=== PATIENT | male | born 1960 | race Caucasian/White ===

== ENCOUNTER 2017-03-26 23:37 | Emergency (ER) | payer OTHER ==
[~2017-03-26] VITALS: Ht 182.9 cm; Wt 70.3 kg
[2017-03-26 23:48] VITALS: BP 145/108
--- NOTE | 2017-03-27 00:40 | NUR ---
Per admitting, pt left ER, no longer wishes to be seen.
== END 2017-03-27 00:42 | disposition left against medical advice (07) ==
LOC: ER 23:37
DX: Z53.21 Procedure and treatment not carried out due to patient leaving prior to being seen by health care provider (principal)
CPT/HCPCS: A4606; Z7610

== ENCOUNTER 2017-06-09 02:40 | Inpatient (IN) | payer OTHER ==
[~2017-06-09] VITALS: Ht 177.8 cm; Wt 75.7 kg
[2017-06-09] MEDS ORDERED: IV NS 0.9% 1,000 ML BAG IV ONE (03:00)
[2017-06-09] MEDS ORDERED: ONDANSETRON HCL/PF - ER 4 MG/2 ML VIAL IV ONE (03:00)
[2017-06-09] MEDS ORDERED: LORAZEPAM INJ 2 MG/ML VIAL IV ONE ×2 (03:00→04:30)
[2017-06-09] MEDS ORDERED: ONDANSETRON HCL/PF 4 MG/2 ML VIAL ONE (03:02)
[2017-06-09] MEDS ORDERED: LORAZEPAM INJ 2 MG/ML VIAL ONE ×2 (03:02→04:28)
[2017-06-09 03:35] LABS: HEMATOCRIT 38 % (39-51); HEMOGLOBIN 13.2 g/dL (13.5-17.5); LYMPHOCYTES # (AUTO) 0.2 /CMM (0.8-4.8); LYMPHOCYTES % (AUTO) 3.2 % (20.0-44.0); MEAN CORPUSCULAR HEMOGLOBIN 29 PG (26.0-33.0); MEAN CORPUSCULAR HGB CONC 35 g/dl (31.0-36.0); MEAN CORPUSCULAR VOLUME 84 fL (80-96); MONOCYTES # (AUTO) 0.6 /CMM (0.1-1.30); MONOCYTES % (AUTO) 7.5 % (2.0-12.0); NEUTROPHILS # (AUTO) 6.8 /CMM (1.8-8.9); NEUTROPHILS % (AUTO) 89.3 % (43.0-81.0); PLATELET COUNT (AUTO) 203 /CMM (150-450); RDW COEFFICIENT OF VARIATION 14.6 (11.5-15.0); RED BLOOD CELL COUNT(AUTO) 4.49 MIL/uL (4.5-6.0); WHITE BLOOD COUNT (AUTO) 7.6 K/uL (4.3-11.0)
[2017-06-09 03:48] LABS: CALCIUM, SERUM 8.8 mg/dL (8.5-10.1); CREATININE 0.7 mg/dL (0.6-1.3); INR 0.9 (0.87-1.13); POTASSIUM 3.9 mmol/L (3.5-5.1)
[2017-06-09 03:53] LABS: ALBUMIN 3.4 g/dL (3.4-5.0); BILIRUBIN,DIRECT 0.2 mg/dL (0.0-0.2); BILIRUBIN,TOTAL 0.9 mg/dL (0.2-1.0); TOTAL PROTEIN, SERUM 6.4 g/dL (6.4-8.2)
[2017-06-09] MEDS ORDERED: ALPR2TAB2 PO (03:55)
[2017-06-09 04:07] LABS: APPEARANCE,URINE TURBID (CLEAR); BILIRUBIN,URINE NEGATIVE (NEGATIVE); BLOOD, URINE NEGATIVE Ery/uL (NEGATIVE); KETONES,URINE TRACE (NEGATIVE); LEUKOCYTE ESTERASE ,URINE NEGATIVE (NEGATIVE); NITRITE, URINE NEGATIVE (NEGATIVE); PH,URINE 7.5 (5.0-8.0); PROTEIN,URINE TRACE mg/dl (NEGATIVE); UGLUCOSE NEGATIVE (NEGATIVE); UROBILINOGEN,URINE 0.2 EU/dL (0.2)
[2017-06-09 04:15] LABS: BACTERIA,URINE Few /HPF (None Seen); RBC,URINE 0-2 /HPF (0-2); SQUAMOUS EPITHELIAL CELL,UR None Seen /HPF (None Seen); URINE AMORPHOUS PHOSPHATES Many /HPF (None Seen); WBC,URINE 0-2 /HPF (0-3)
[2017-06-09] MEDS ORDERED: IV NS 0.9% 1,000 ML IV PRN (04:24)
[2017-06-09] MEDS ORDERED: ONDANSETRON HCL/PF 4 MG/2 ML VIAL IVP PRN (04:30)
[2017-06-09] MEDS ORDERED: HYDROCODONE/APAP 5/325MG 1 EACH TABLET PO PRN (04:30)
[2017-06-09] MEDS ORDERED: ACETAMINOPHEN 325 MG TABLET PO PRN (04:30)
[2017-06-09] MEDS ORDERED: Z GUARD REMEDY 2 OZ OINT TP PRN (04:30)
[2017-06-09] MEDS ORDERED: MAGNESIUM HYDROXIDE 30 ML UDC PO PRN (04:30)
[2017-06-09] MEDS ORDERED: MAG HYDROX/AL HYDROX/SIMETH 30 ML UDC PO PRN (04:30)
[2017-06-09 05:00] VITALS: BP 153/96
[2017-06-09] MEDS ORDERED: MAGNESIUM OXIDE 400 MG TABLET PO ONE (05:00)
[2017-06-09] MEDS ORDERED: MAGNESIUM OXIDE 400 MG TABLET ONE (05:10)
[2017-06-09] MEDS: LORAZEPAM INJ 2 MG/ML VIAL IV PRN ×5 (06:22→22:06)
[2017-06-09 08:00] VITALS: BP 153/96
[2017-06-09] MEDS: PANTOPRAZOLE 40 MG TABLET.DR PO SCH (09:20)
[2017-06-09] MEDS: THIAMINE HCL 100 MG TABLET PO SCH (09:20)
[2017-06-09] MEDS: FOLIC ACID 1 MG TABLET PO SCH (09:20)
[2017-06-09 16:00] VITALS: BP 152/95
[2017-06-09 20:00] VITALS: BP 146/95
[2017-06-09 22:00] VITALS: BP 100/60
[2017-06-10] MEDS: LORAZEPAM INJ 2 MG/ML VIAL IV PRN (01:35)
[2017-06-10 07:18] LABS: BASOPHILS % (AUTO) 0.1 % (0.0-2.0); EOSINOPHILS # (AUTO) 0.1 /CMM (0.0-0.7); EOSINOPHILS % (AUTO) 1.1 % (0.0-6.0); HEMATOCRIT 39 % (39-51); HEMOGLOBIN 13.3 g/dL (13.5-17.5); LYMPHOCYTES # (AUTO) 0.9 /CMM (0.8-4.8); LYMPHOCYTES % (AUTO) 13.7 % (20.0-44.0); MEAN CORPUSCULAR HEMOGLOBIN 29 PG (26.0-33.0); MEAN CORPUSCULAR HGB CONC 34 g/dl (31.0-36.0); MEAN CORPUSCULAR VOLUME 86 fL (80-96); MONOCYTES # (AUTO) 0.6 /CMM (0.1-1.30); MONOCYTES % (AUTO) 9.8 % (2.0-12.0); NEUTROPHILS # (AUTO) 4.7 /CMM (1.8-8.9); NEUTROPHILS % (AUTO) 75.3 % (43.0-81.0); PLATELET COUNT (AUTO) 169 /CMM (150-450); RED BLOOD CELL COUNT(AUTO) 4.56 MIL/uL (4.5-6.0); WHITE BLOOD COUNT (AUTO) 6.3 K/uL (4.3-11.0)
[2017-06-10 07:47] LABS: ALBUMIN 3.2 g/dL (3.4-5.0); BILIRUBIN,DIRECT 0.2 mg/dL (0.0-0.2); BILIRUBIN,TOTAL 1.1 mg/dL (0.2-1.0); CALCIUM, SERUM 9.1 mg/dL (8.5-10.1); CREATININE 0.7 mg/dL (0.6-1.3); MAGNESIUM 1.9 mg/dL (1.8-2.4); PHOSPHORUS 3.3 mg/dL (2.5-4.9); POTASSIUM 3.5 mmol/L (3.5-5.1); TOTAL PROTEIN, SERUM 6.1 g/dL (6.4-8.2)
[2017-06-10 07:51] LABS: THYROID STIMULATING HORMONE 2.524 uIU/mL (0.358-3.74)
[2017-06-10 08:00] VITALS: BP 139/114
[2017-06-10] MEDS: FOLIC ACID 1 MG TABLET PO SCH (08:05)
[2017-06-10] MEDS: PANTOPRAZOLE 40 MG TABLET.DR PO SCH (08:05)
[2017-06-10] MEDS: THIAMINE HCL 100 MG TABLET PO SCH (08:05)
== END 2017-06-10 09:00 | disposition left against medical advice (07) | DRG 894 ==
LOC: ER 02:41 → TELE 04:35 → MED 08:35
PROVIDERS: ADMIT Nurse Practitioner Acute Care; ATTEND Nurse Practitioner Acute Care
DX: F10.239 Alcohol dependence with withdrawal, unspecified (principal); G93.40 Encephalopathy, unspecified; E83.42 Hypomagnesemia; F10.26 Alcohol dependence with alcohol-induced persisting amnestic disorder; Y90.0 Blood alcohol level of less than 20 mg/100 ml; D64.9 Anemia, unspecified; E86.0 Dehydration; F41.9 Anxiety disorder, unspecified; R74.0 Nonspecific elevation of levels of transaminase and lactic acid dehydrogenase [LDH]
CPT/HCPCS: 36415; 70450-TC; 71045-TC; 80048-TC; 80061-TC; 80076-TC; 80305; 81000-TC; 82962-TC; 83690-TC; 83735-TC; 84100-TC; 84443-TC; 85025-TC; 85730-TC; 87081-TC; A4606; G0480; J2060; J2405; J7030; Z7610

== ENCOUNTER 2018-05-30 11:55 | Emergency (ER) | payer BC, OTHER ==
[~2018-05-30] VITALS: Ht 182.9 cm; Wt 77.6 kg
[~2018-05-30 11:55] MED LIST: ALPR2TAB2 PO
--- NOTE | 2018-05-30 11:59 | NUR ---
PT TYLER FROM HOME FOR AMS D/T ETOH; PT ON MONITOR, VSS, O2 SAT 100% ON RA, PENDING ER PROVIDER DENISE
[2018-05-30 12:14] LABS: BASOPHILS % (AUTO) 0.3 % (0.0-2.0); EOSINOPHILS % (AUTO) 0.2 % (0.0-6.0); HEMATOCRIT 46 % (39-51); HEMOGLOBIN 15.5 g/dL (13.5-17.5); LYMPHOCYTES # (AUTO) 1.1 /CMM (0.8-4.8); LYMPHOCYTES % (AUTO) 12.8 % (20.0-44.0); MEAN CORPUSCULAR HGB CONC 34 g/dl (31.0-36.0); MEAN CORPUSCULAR VOLUME 84 fL (80-96); MONOCYTES # (AUTO) 0.9 /CMM (0.1-1.30); MONOCYTES % (AUTO) 9.9 % (2.0-12.0); NEUTROPHILS # (AUTO) 6.9 /CMM (1.8-8.9); NEUTROPHILS % (AUTO) 76.8 % (43.0-81.0); PLATELET COUNT (AUTO) 94 /CMM (150-450); RED BLOOD CELL COUNT(AUTO) 5.49 MIL/uL (4.5-6.0)
[2018-05-30 12:21] LABS: CALCIUM, SERUM 8.8 mg/dL (8.5-10.1); CREATININE 0.8 mg/dL (0.6-1.3); POTASSIUM 3.8 mmol/L (3.5-5.1)
[2018-05-30 12:29] LABS: ALBUMIN 3.4 g/dL (3.4-5.0); BILIRUBIN,DIRECT 0.1 mg/dL (0.0-0.2); BILIRUBIN,TOTAL 0.2 mg/dL (0.2-1.0); SALICYLATE 1.1 mg/dL (2.8-20.0)
[2018-05-30] MEDS ORDERED: IV NS 0.9% 1,000 ML BAG IV ONE (12:30)
[2018-05-30 13:19] LABS: LYMPHOCYTES % (MANUAL) 12 % (16-48); MONOCYTES % (MANUAL) 9 % (0-11.0); NEUTROPHILS % (MANUAL) 79 (42-76)
--- NOTE | 2018-05-30 17:42 | NUR ---
[facility] CALLED REGARDING PT, AWARE OF PT'S D/C, PER SISTER, WILL SEND FRIEND TO PICK HIM UP; ETA ABOUT 30-1HR.
--- NOTE | 2018-05-30 19:54 | NUR ---
[facility]ENN[facility] CALLED FOR TRANSPORT. ETA [id number]. TRIP# [id number]
--- NOTE | 2018-05-30 22:01 | NUR ---
PER FAMILY AND PATIENT'S REQUEST, PT TO BE TRANSFERRED TO [facility]. PT LEFT IN STABLE CONDTION, PT AMBULATORY WITH STEADY GAIT; REPORT GIVEN TO EMT TRANSPORT, PT LEFT VIA PRIVATE AMBULANCE, VSS.
[2018-05-30 22:03] VITALS: BP 135/85
== END 2018-05-30 22:06 | disposition home or self-care (01) ==
LOC: ER 11:56
DX: F10.129 Alcohol abuse with intoxication, unspecified (principal); R41.82 Altered mental status, unspecified; Y90.8 Blood alcohol level of 240 mg/100 ml or more
CPT/HCPCS: 36415; 70450-TC; 80048-TC; 80076-TC; 82962-TC; 85025-TC; G0480; J7030

== ENCOUNTER 2019-04-25 13:40 | Emergency (ER) | payer BC, OTHER ==
[~2019-04-25] VITALS: Ht 182.9 cm; Wt 83.9 kg
[2019-04-25] MEDS ORDERED: CLONIDINE HCL 0.1 MG TABLET PO ONE (14:30)
--- NOTE | 2019-04-25 18:11 | NUR ---
RUBÉN TREVINO) CONTACT WITH UPDATES
--- NOTE | 2019-04-25 19:30 | NUR ---
ASSUMED CARE FOR PATIENT AT THIS TIME
--- NOTE | 2019-04-25 19:53 | NUR ---
PT WILL BE PICKED UP BY [facility] ETA 30 MIN
[2019-04-25] MEDS ORDERED: CLONIDINE HCL 0.1 MG TABLET ONE (20:03)
[2019-04-25 20:35] VITALS: BP 147/84
== END 2019-04-25 20:36 | disposition home or self-care (01) ==
LOC: ER 13:41
DX: F10.129 Alcohol abuse with intoxication, unspecified (principal); I10 Essential (primary) hypertension; Y90.8 Blood alcohol level of 240 mg/100 ml or more; Z79.899 Other long term (current) drug therapy
CPT/HCPCS: 36415; G0480

== ENCOUNTER 2020-11-04 14:25 | Emergency (ER) | payer BC, OTHER ==
[~2020-11-04] VITALS: Ht 182.9 cm; Wt 81.6 kg
[2020-11-04 14:37] VITALS: BP 118/80
--- NOTE | 2020-11-04 14:43 | NUR ---
The patient bibs for c/o L index finger laceration s/p crush injury 20 mins ago. Rates pain 5/10. No bleeding noted. No apparent deformity noted. Will continue to monitor the patient.
--- NOTE | 2020-11-04 15:54 | NUR ---
Patient discharged to home in stable condition. Written and verbal after care instructions given. Patient verbalizes understanding of instruction.
== END 2020-11-04 15:55 | disposition home or self-care (01) ==
LOC: ER 14:25
DX: S61.211A Laceration without foreign body of left index finger without damage to nail, initial encounter (principal); F10.10 Alcohol abuse, uncomplicated; Y90.9 Presence of alcohol in blood, level not specified; Z79.899 Other long term (current) drug therapy; W22.8XXA Striking against or struck by other objects, initial encounter; Y93.89 Activity, other specified; Y92.89 Other specified places as the place of occurrence of the external cause; Y99.8 Other external cause status

== ENCOUNTER 2024-01-16 00:43 | Inpatient (IN) | payer BC, MEDICARE, OTHER ==
[~2024-01-16] VITALS: Ht 182.9 cm; Wt 68.0 kg
[2024-01-16] MEDS ORDERED: LORAZEPAM 1 MG TABLET ONE (05:09)
[2024-01-16] MEDS ORDERED: ONDANSETRON 4 MG TAB.RAPDIS ONE (05:10)
[2024-01-16] MEDS: LORAZEPAM 1 MG TABLET PO ONE (05:13)
[2024-01-16] MEDS: ONDANSETRON 4 MG TAB.RAPDIS SL ONE (05:13)
[2024-01-16] MEDS ORDERED: THIAMINE HCL 100 MG TABLET ONE (05:15)
[2024-01-16] MEDS: THIAMINE HCL 100 MG TABLET PO ONE (05:20)
[2024-01-16] MEDS ORDERED: ONDANSETRON HCL/PF 4 MG/2 ML VIAL ONE (05:30)
[2024-01-16] MEDS: ONDANSETRON HCL/PF - ER 4 MG/2 ML VIAL IV ONE (05:30)
[2024-01-16] MEDS: LORAZEPAM INJ 2 MG/ML VIAL IV ONE (05:30)
[2024-01-16] MEDS: HALOPERIDOL LACTATE INJ 5 MG/ML VIAL IV ONE (05:30)
[2024-01-16] MEDS ORDERED: HALOPERIDOL LACTATE INJ 5 MG/ML VIAL ONE (05:30)
[2024-01-16] MEDS ORDERED: LORAZEPAM INJ 2 MG/ML VIAL ONE (05:31)
[2024-01-16 05:33] LABS: BASOPHILS % (AUTO) 0.3 % (0.0-2.0); EOSINOPHILS # (AUTO) 0.1 K/uL (0.0-0.7); EOSINOPHILS % (AUTO) 0.7 % (0.0-6.0); HEMATOCRIT 45 % (39-51); HEMOGLOBIN 15.3 g/dL (13.5-17.5); LYMPHOCYTES # (AUTO) 1.1 K/uL (0.8-4.8); LYMPHOCYTES % (AUTO) 12.6 % (20.0-44.0); MEAN CORPUSCULAR HEMOGLOBIN 28 PG (26.0-33.0); MEAN CORPUSCULAR HGB CONC 34 g/dl (31.0-36.0); MEAN CORPUSCULAR VOLUME 83 fL (80-96); MONOCYTES # (AUTO) 0.8 K/uL (0.1-1.30); NEUTROPHILS # (AUTO) 6.4 K/uL (1.8-8.9); NEUTROPHILS % (AUTO) 76.4 % (43.0-81.0); PLATELET COUNT (AUTO) 112 K/uL (150-450); RED BLOOD CELL COUNT(AUTO) 5.45 MIL/uL (4.5-6.0); RED CELL DISTRIBUTION WIDTH 15.2 % (11.5-15.0); WHITE BLOOD COUNT (AUTO) 8.4 K/uL (4.3-11.0)
[2024-01-16] MEDS: IV NS 0.9% 1,000 ML BAG IV ONE (05:37)
[2024-01-16 05:48] LABS: CALCIUM, SERUM 10.8 mg/dL (8.5-10.1); CREATININE 0.8 mg/dL (0.6-1.3)
[2024-01-16 05:54] LABS: ALBUMIN 4.1 g/dL (3.4-5.0); BILIRUBIN,DIRECT 0.3 mg/dL (0.0-0.2); BILIRUBIN,TOTAL 1.1 mg/dL (0.2-1.0); TOTAL PROTEIN, SERUM 7.8 g/dL (6.4-8.2)
[2024-01-16] MEDS ORDERED: POTASSIUM CL. PREMIX PERIPHER. 50 ML ONE ×4 (06:15→08:48)
[2024-01-16] MEDS ORDERED: Thiamine 100 MG/ML VIAL ONE (06:15)
[2024-01-16] MEDS ORDERED: POTASSIUM CHLORIDE 10 MEQ TABLET.SA ONE (06:16)
[2024-01-16] MEDS: Thiamine 500 MG in IV D5W 50 ML IV SCH (06:27)
[2024-01-16] MEDS: POTASSIUM CL. PREMIX PERIPHER. 50 ML IV SCH (06:27)
[2024-01-16] MEDS: POTASSIUM CHLORIDE 20 MEQ TAB.PRT.SR PO ONE (06:27)
[2024-01-16] MEDS ORDERED: Z GUARD REMEDY 4 OZ OINT TP PRN (06:30)
[2024-01-16] MEDS ORDERED: ONDANSETRON HCL/PF 4 MG/2 ML VIAL IVP PRN (06:30)
[2024-01-16] MEDS ORDERED: MAGNESIUM HYDROXIDE 30 ML UDC PO PRN (06:30)
[2024-01-16] MEDS ORDERED: MAG HYDROX/AL HYDROX/SIMETH 30 ML UDC PO PRN (06:30)
[2024-01-16] MEDS ORDERED: CHLORDIAZEPOXIDE HCL 25 MG CAPSULE PO PRN (06:30)
[2024-01-16] MEDS: THIAMINE HCL 100 MG TABLET PO SCH (09:00)
[2024-01-16] MEDS ORDERED: DIAZ10TA4 PO (09:08)
[2024-01-16] MEDS ORDERED: ROSU5TAB PO (09:08)
[2024-01-16] MEDS ORDERED: TEST75GE10 TP (09:08)
[2024-01-16] MEDS ORDERED: ZOLP10TA2 PO (09:08)
[2024-01-16] MEDS ORDERED: BUPR300T52 PO (09:08)
[2024-01-16] MEDS ORDERED: TADA5TAB13 PO (09:08)
[2024-01-16] MEDS ORDERED: LORAZEPAM INJ 2 MG/ML VIAL IV PRN (09:30)
[2024-01-16 11:00] VITALS: BP 135/90; TEMP 97.9; O2SAT 97
[2024-01-16] MEDS: MULTIVITAMINS,THERAGRAN 1 UDTAB TABLET PO SCH (11:00)
[2024-01-16] MEDS: CHLORDIAZEPOXIDE HCL 25 MG CAPSULE PO SCH (11:00)
[2024-01-16] MEDS: FOLIC ACID 1 MG TABLET PO SCH (11:00)
[2024-01-16 11:30] VITALS: BP 133/87; TEMP 97.9; O2SAT 94
[2024-01-16 16:00] VITALS: BP 121/91; TEMP 97.7; O2SAT 96
[2024-01-16] MEDS: IV NS 0.9% 1,000 ML IV PRN (16:13)
[2024-01-16] MEDS ORDERED: LIDOCAINE VISCOUS 2% UD 15 ML UDC MM PRN (17:30)
[2024-01-16 20:00] VITALS: BP_SYST 123; BP_SYST 138; BP_DIAS 78; BP_DIAS 89; TEMP 97.9; TEMP 98.1; O2SAT 95; O2SAT 97
[2024-01-17 07:08] VITALS: BP 138/78; TEMP 98.1; O2SAT 97
[2024-01-17 07:24] LABS: BASOPHILS % (AUTO) 0.4 % (0.0-2.0); EOSINOPHILS # (AUTO) 0.2 K/uL (0.0-0.7); EOSINOPHILS % (AUTO) 3.6 % (0.0-6.0); HEMATOCRIT 41 % (39-51); HEMOGLOBIN 13.5 g/dL (13.5-17.5); LYMPHOCYTES # (AUTO) 1.2 K/uL (0.8-4.8); LYMPHOCYTES % (AUTO) 21.2 % (20.0-44.0); MEAN CORPUSCULAR HEMOGLOBIN 28 PG (26.0-33.0); MEAN CORPUSCULAR HGB CONC 33 g/dl (31.0-36.0); MEAN CORPUSCULAR VOLUME 85 fL (80-96); MONOCYTES # (AUTO) 0.5 K/uL (0.1-1.30); MONOCYTES % (AUTO) 9.1 % (2.0-12.0); NEUTROPHILS # (AUTO) 3.7 K/uL (1.8-8.9); NEUTROPHILS % (AUTO) 65.7 % (43.0-81.0); PLATELET COUNT (AUTO) 102 K/uL (150-450); RED BLOOD CELL COUNT(AUTO) 4.81 MIL/uL (4.5-6.0); RED CELL DISTRIBUTION WIDTH 15.5 % (11.5-15.0); WHITE BLOOD COUNT (AUTO) 5.6 K/uL (4.3-11.0)
[2024-01-17 08:00] VITALS: BP 125/96; TEMP 98.1; O2SAT 97
[2024-01-17 08:03] LABS: CALCIUM, SERUM 9.6 mg/dL (8.5-10.1); CREATININE 0.6 mg/dL (0.6-1.3); MAGNESIUM 1.9 mg/dL (1.8-2.4); PHOSPHORUS 3.2 mg/dL (2.5-4.9); POTASSIUM 3.3 mmol/L (3.5-5.1)
[2024-01-17] MEDS: BUPROPION XL 150 MG TAB.ER.24 PO SCH (08:08)
[2024-01-17] MEDS: ATORVASTATIN 10 MG TABLET PO SCH (08:09)
[2024-01-17] MEDS: POTASSIUM CHLORIDE 20 MEQ TAB.PRT.SR PO SCH (09:59)
[2024-01-17] MEDS: TOBRAMYCIN OPHTH 5ML 5 ML BOTTLE EACHEYE SCH (10:41)
[2024-01-17] MEDS: MECLIZINE HCL 25 MG TABLET PO PRN (11:29)
[2024-01-17] MEDS ORDERED: MECLIZINE HCL 12.5 MG TABLET PO PRN (11:30)
[2024-01-17] MEDS ORDERED: TOBR5DRO7 EACHEYE (11:58)
[2024-01-17] MEDS ORDERED: MECL-159 PO (11:58)
[2024-01-17] MEDS ORDERED: CHLO25CA22 PO (11:58)
[2024-01-17] MEDS: ACETAMINOPHEN 325 MG TABLET PO PRN (15:18)
[2024-01-17 16:00] VITALS: BP 116/85; TEMP 98.6; O2SAT 96
== END 2024-01-17 16:59 | disposition home health service (06) | DRG 897 ==
LOC: ER 00:44 → TELE 09:23 → MED 11:23
PROVIDERS: ADMIT Internal Medicine; ATTEND Internal Medicine
DX: F10.139 Alcohol abuse with withdrawal, unspecified (principal); E87.6 Hypokalemia; E86.0 Dehydration; D69.6 Thrombocytopenia, unspecified; E80.6 Other disorders of bilirubin metabolism; R74.8 Abnormal levels of other serum enzymes; R74.01 Elevation of levels of liver transaminase levels; R11.2 Nausea with vomiting, unspecified; Y90.0 Blood alcohol level of less than 20 mg/100 ml; H10.9 Unspecified conjunctivitis; R42 Dizziness and giddiness
CPT/HCPCS: 36415; 71045-TC; 80048-TC; 80076-TC; 82550-TC; 83690-TC; 83735-TC; 84100-TC; 85025-TC; 97112-TC; 97116-TC; 97530-TC; 98960; A4223; G0378; G0480; J1630; J2060; J2405; J3411; J3480; J7030; J7060; J8597; Q0162